=== PATIENT | female | born 1985 | race Caucasian/White ===

== ENCOUNTER 2017-06-14 16:21 | Inpatient (IN) | payer MEDICAID, OTHER ==
[~2017-06-14] VITALS: Ht 160 cm; Wt 72.0 kg
[2017-06-14] VITALS (74 sets, daily range): BP systolic 109–140; BP diastolic 72–117; PULSE 63–95; RESP 17–18; TEMP 98–98.3
[2017-06-14] MEDS ORDERED: PREN1TAB45 PO (16:43)
[2017-06-14] MEDS ORDERED: LACTATED RINGER'S 1000 ML INJ 1,000 ML IV PRN (17:02)
[2017-06-14] MEDS ORDERED: CITRIC ACID-SODIUM CITRATE LIQ 30 ML UDC PO SCH (17:15)
[2017-06-14] MEDS ORDERED: OXYTOCIN 30 UNITS-500ML PREMIX 500 ML IV PRN (17:15)
[2017-06-14] MEDS ORDERED: SODIUM CHLORID 0.9% 500 ML INJ 500 ML IV PRN (17:15)
[2017-06-14] MEDS ORDERED: LIDOCAINE HCL 1% 50 ML VIAL I-DERMAL PRN (17:15)
[2017-06-14] MEDS ORDERED: OXYTOCIN 30 UNITS-500ML PREMIX 500 ML IV ONE (17:15)
[2017-06-14] MEDS ORDERED: LIDOCAINE HCL 1% 50 ML VIAL INFIL PRN (17:15)
[2017-06-14] MEDS ORDERED: MINERAL OIL 10 ML VIAL TOPICAL PRN (17:15)
--- NOTE | 2017-06-14 17:16 | HHI.PR ---
MECHANIC'S ASSISTANT Note Note HPI HPI Chief Complaint ROM Date Seen: Jun 14, 2017 Time Seen: 17:08 Travel History International Travel<30 Days: Yes Contact w/Intl Traveler<30Days: Yes Name of Country Traveled to: [facility] Known Affected Area: Yes History of Present Illness HPI Pt is a 32y/o G1 @ 38.6wks. She has had a single [facility] visit to [facility] on 05/[facility] 2' to lack of insurance. She presents with ROM at 2:30pm (clear). Some back pain but no ctx or VB. +FM. Per records, GBS neg, BPD/HC <2 %, AC >97%, polyhydramnios, and abnormal R kidney. She is from [place] which has been affected by Zika. She is uncertain if she was bit or tested during this . Weeks Gestation: 38 Para: 0 : 1 History (Limited) History Past Medical History Medical History: Denies Significant Hx Past Surgical History Surgical History: No Previous Surgery Family History Family History: Negative Social History Alcohol Use: No Tobacco Use: No Substance Abuse: No Allergies-Medications Allergies-Medications (Allergen,Severity, Reaction): Coded Allergies: No Known Allergies (Unverified , 05/18/17) Home Meds Reported Medications Vit,Calc76/Iron/Folic (Pnv 29-1 Tablet) 29 Mg Iron-1 Mg Tablet, 1 TAB PO DAILY 06/14/17 ROS Review of Systems Except as stated in HPI: all other systems reviewed are Neg Physical Exam Physical Exam Narrative General: well developed, well nourished, no acute distress HEENT: normocephalic atraumatic, extraocular movements intact, neck supple Abdomen: soft, gravid, nontender, nondistended Uterus: fundus term Extremities: full range of motion Skin: normal coloration, no rashes, no suspicious skin lesions noted Neurologic: cranial nerves 2-12 grossly intact, normal muscle tone, normal gait Psychiatric: normal mood and affect, appropriate FHTs: 145, +accels, no decels, moderate variability, reactive [place]: irregular ctx Cvx: 3/100/-3 Data Data Data Vital Signs Reviewed: Yes Orders Orders Ob (2e) Additional Admit Info (06/14/17 17:02) Vital Signs (Adult) .ON ADMISSION (06/14/17 17:02) ^ Labor Status (06/14/17 17:02) ^ Non Stress Test (06/14/17 17:02) Admit To Inpatient (06/14/17 ) Vital Signs (Adult) .Per protocol (06/14/17 17:02) Heart (06/14/17 17:02) Amnioinfusion (06/14/17 17:02) Urinary Catheter Management .ONCE (06/14/17 17:02) Diet Liquid (06/14/17 Dinner) Lactated Ringer's 1000 Ml Inj (Lr 1000 M (06/14/17 17:02) Lactated Ringer's 1000 Ml Inj (Lr 1000 M (06/14/17 17:02) Sodium Chlorid 0.9% 500 Ml Inj (Ns 500 M (06/14/17 17:15) Sodium Chlor 0.9% 1000 Ml Inj (Ns 1000 M (06/14/17 17:22) Lidocaine 1% Inj (50 Ml) (Xylocaine 1% I (06/14/17 17:15) Citric Acid-Sodium Citrate Liq (Bicitra (06/14/17 17:15) Fentanyl Inj (Fentanyl Inj) (06/14/17 17:15) Fentanyl Inj (Fentanyl Inj) (06/14/17 17:15) Complete Blood Count With Diff (06/14/17 17:02) Hold Clot (06/14/17 17:02) Abo/Rh Blood Type (06/14/17 17:02) Urinalysis - C+S If Indicated (06/14/17 17:02) Drug Screen, Random Urine (06/14/17 17:02) Resp Oxygen Non Rebreathe Mask (06/14/17 ) ^ Epidural / Intrathecal Infus (06/14/17 17:02) Oxytocin 30 Units-500ml Premix (Pitocin (06/14/17 17:15) Lidocaine 1% Inj (50 Ml) (Xylocaine 1% I (06/14/17 17:15) Light Mineral Oil (Muri-Lube Oil) (06/14/17 17:15) Inpatient Certification (06/14/17 ) ^ Non Stress Test (06/14/17 17:02) Response To Medication .Post New Med Administration, Reaction (06/14/17 17:02) ^ Discontinue Medication (06/14/17 17:02) Oxytocin Drip (2-2-30) (06/14/17 17:15) Group B Strep: Negative MDM MDM Plan 32y/o G1 @ 38.6wks with PROM, limited PNC, BPD/HC <2%, AC>97%, renal abnormality. -- admit to L&D -- cat 1 FHTs -- pitocin augmentation -- jose notified -- GBS neg Diagnosis Diagnosis: Primary Impression: 38 weeks gestation of Additional Impressions: Limited care PROM (premature rupture of membranes) renal anomaly Hector Mary MD Jun 14, 2017 17:14 Hector Mary MD Jun 14, 2017 17:15
[2017-06-14] MEDS ORDERED: SODIUM CHLOR 0.9% 1000 ML INJ 1,000 ML IV PRN (17:22)
[2017-06-14] MEDS: LACTATED RINGER'S 1000 ML INJ 1,000 ML IV SCH (17:36)
[2017-06-14 17:47] LABS: AUTOMATED NEUTROPHIL # 7.7 TH/MM3 (1.8-7.7); BASOPHIL # 0.1 TH/MM3 (0-0.2); BASOPHIL % 0.7 % (0.0-2.0); EOSINOPHIL # 0.2 TH/MM3 (0-0.4); EOSINOPHIL % 1.4 % (0.0-4.0); HEMATOCRIT 36.7 % (35.0-46.0); HEMOGLOBIN 12.4 GM/DL (11.6-15.3); LYMPH % 21.8 % (9.0-44.0); LYMPHOCYTE # 2.4 TH/MM3 (1.0-4.8); MEAN CORPUSCULAR HEMOGLOBIN 30.9 PG (27.0-34.0); MEAN CORPUSCULAR HGB CONC 33.9 % (32.0-36.0); MEAN PLATELET VOLUME 9.2 FL (7.0-11.0); MONO % 7.3 % (0.0-8.0); MONOCYTE # 0.8 TH/MM3 (0-0.9); NEUT % 68.8 % (16.0-70.0); PLATELET COUNT 223 TH/MM3 (150-450); RED BLOOD COUNT 4.03 MIL/MM3 (4.00-5.30); RED CELL DISTRIBUTION WIDTH 14.1 % (11.6-17.2); WHITE BLOOD COUNT 11.1 TH/MM3 (4.0-11.0)
[2017-06-14 17:56] LABS: BACTERIA, URINE RARE /hpf; BILIRUBIN, URINE NEG (NEG); BLOOD, URINE TRACE (NEG); GLUCOSE,URINE NEG (NEG); KETONE, URINE NEG (NEG); MUCUS URINE FEW /lpf (OCC); NITRITE,URINE NEG (NEG); PH, URINE 6.5 (5.0-8.5); SQUAMOUS EPITHELIAL CELL URINE 2 /hpf (0-5); URINE COLOR YELLOW (YELLW/STRAW); URINE LEUKOCYTE ESTERASE NEG (NEG)
[2017-06-15] VITALS (80 sets, daily range): BP systolic 96–142; BP diastolic 49–89; PULSE 50–103; RESP 16–18; TEMP 97.5–98.2; O2SAT 97–98
[2017-06-15] MEDS ORDERED: fentaNYL 2MCG-BUPIV 0.125% INJ 100 ML ONE (07:23)
[2017-06-15] MEDS ORDERED: ePHEDrine/NS 25 MG/5 ML SYRINGE IV PUSH PRN (08:45)
[2017-06-15] MEDS: LACTATED RINGER'S 1000 ML INJ 1,000 ML IV SCH (08:57)
[2017-06-15] MEDS ORDERED: NO SYSTEM NARCOTICS PRN (09:00)
[2017-06-15] MEDS ORDERED: DO NOT ADMINISTER ANTICOAGULANTS PRN (09:00)
[2017-06-15] MEDS ORDERED: fentaNYL 2MCG-BUPIV 0.125% 100 ML EPIDURAL SCH (09:00)
--- NOTE | 2017-06-15 09:31 | PD.LABORPN ---
Subjective Subjective Resting in bed comfortably, states she cant feel any pain at this time. Resting comfortably. No complaints at this time. Objective Vital Signs Vital Signs Date Time Temp Pulse Resp B/P (MAP) Pulse Ox O2 Delivery O2 Flow Rate FiO2 06/15/17 09:00 61 109/69 (82) 06/15/17 08:25 67 06/15/17 08:25 66 108/71 (83) 06/15/17 08:20 65 06/15/17 08:20 69 112/67 (82) 06/15/17 08:15 81 06/15/17 08:15 69 118/79 (92) 06/15/17 08:10 80 06/15/17 08:10 79 111/75 (87) 06/15/17 08:05 70 106/65 (79) 06/15/17 08:05 68 06/15/17 08:00 75 107/65 (79) 06/15/17 08:00 73 06/15/17 07:56 71 06/15/17 07:55 98 06/15/17 07:51 89 142/89 (106) 06/15/17 07:50 88 06/15/17 07:45 89 06/15/17 07:20 72 116/82 (93) 06/15/17 07:20 98.0 16 06/15/17 07:01 73 106/56 (73) 06/15/17 06:32 74 105/67 (80) 06/15/17 06:30 62 96/49 (65) 06/15/17 06:01 93 101/75 (84) 06/15/17 05:31 62 118/68 (85) 06/15/17 05:12 97.5 18 06/15/17 05:00 65 128/86 (100) 06/15/17 04:31 65 116/85 (95) 06/15/17 04:30 75 06/15/17 04:25 75 06/15/17 04:20 72 06/15/17 04:15 76 06/15/17 04:10 65 06/15/17 04:05 68 06/15/17 04:00 71 120/79 (93) 06/15/17 04:00 72 06/15/17 03:40 67 06/15/17 03:35 79 06/15/17 03:30 70 109/72 (84) 06/15/17 03:30 73 06/15/17 03:10 74 06/15/17 03:05 66 06/15/17 03:01 74 112/72 (85) 06/15/17 03:00 69 06/15/17 02:30 68 101/56 (71) 06/15/17 02:30 66 06/15/17 02:10 70 06/15/17 02:05 71 06/15/17 02:01 65 107/61 (76) 06/15/17 02:00 66 06/15/17 01:40 66 06/15/17 01:35 70 06/15/17 01:30 64 122/77 (92) 06/15/17 01:30 62 Objective Pelvic Exam: Cervix: mid Dilatation: 3 Effacement: 50 Station: -3 Position: Vertex Membranes: ruptured Uterine Contractions: ~3minutes FHT's: Category: 1 Baseline: 135 Reactive: yes Variability: moderate Decels: none Weeks Gestation: 38 Assessment/Plan Assessment and Plan 32 year old at 39/0. Currently with consistent contraction, s/p clear ROM. GBS neg. -FHT category 1, reassuring -Monitor heart rate -Pitocin augmentation -Expectant delivery D/W Morales Mancuso MD R1 Jun 15, 2017 09:31
[2017-06-15] MEDS ORDERED: INFLUENZA VIRUS VACCINE (QUADRIVALENT) 0.5 ML SYR IM ONE (10:00)
[2017-06-15] MEDS ORDERED: LACTATED RINGER'S 1000 ML INJ 1,000 ML IV ONE ×2 (12:00→17:00)
[2017-06-15] MEDS ORDERED: OXYTOCIN 10 UNIT/ML AMP IV ONE (12:00)
[2017-06-15] MEDS ORDERED: LIDOCAINE 2%/EPINEPHrine PF 1:200,000 20ML SDV OTHER ONE (12:00)
[2017-06-15] MEDS ORDERED: ONDANSETRON HCL 4 MG/2 ML VIAL IV ONE (12:00)
[2017-06-15] MEDS ORDERED: DEXAMETHASONE SOD PHOS 4 MG/ML VIAL IV ONE (12:00)
[2017-06-15 13:20] LABS: HEPATITIS A AB IGM NEGATIVE (NEGATIVE); HEPATITIS B CORE AB IGM NEGATIVE (NEGATIVE); HEPATITIS B SURFACE ANTIGEN NEGATIVE (NEGATIVE); HEPATITIS C AB IgG NEGATIVE (NEGATIVE)
[2017-06-15] MEDS ORDERED: MORPHINE SULFATE PF 5 MG/10 ML VIAL ONE (16:23)
[2017-06-15] MEDS ORDERED: LACTATED RINGER'S 1000 ML INJ 1,000 ML IV SCH ×2 (17:30→23:34)
[2017-06-15] MEDS ORDERED: ceFAZolin 2 GM PREMIX 50 ML IV SCH (17:30)
[2017-06-15] MEDS ORDERED: CITRIC ACID-SODIUM CITRATE LIQ 30 ML UDC PO SCH (18:00)
[2017-06-15] MEDS ORDERED: OXYTOCIN 30 UNITS-500ML PREMIX 500 ML IV ONE (18:45)
[2017-06-15] MEDS ORDERED: SIMETHICONE 80 MG CHEWABLE TAB PO PRN (18:45)
[2017-06-15] MEDS ORDERED: SODIUM CHLORIDE 0.9% FLUSH 10 ML FLUSH IV FLUSH PRN (18:45)
[2017-06-15] MEDS ORDERED: ZOLPIDEM TARTRATE 5 MG TAB PO PRN (18:45)
[2017-06-15] MEDS ORDERED: ONDANSETRON HCL 4 MG/2 ML VIAL IV PUSH PRN (18:45)
[2017-06-15] MEDS ORDERED: ACETAMINOPHEN 325 MG TAB PO PRN (18:45)
[2017-06-15] MEDS ORDERED: EPIDURAL-DIPHENHYDRAMINE HCL 50 MG CAP PO PRN (20:30)
[2017-06-15] MEDS ORDERED: EPIDURAL-NO SYSTEMIC NARCOTICS PRN (20:30)
[2017-06-15] MEDS ORDERED: EPIDURAL-DO NOT ADMINISTER ANTICOAGULANTS PRN (20:30)
[2017-06-15] MEDS ORDERED: EPIDURAL-DIPHENHYDRAMINE HCL 50 MG/ML VIAL IV PUSH PRN (20:30)
[2017-06-15] MEDS ORDERED: EPIDURAL-NALOXONE HCL 0.4 MG/ML AMP IV PUSH PRN (20:30)
[2017-06-16] VITALS (7 sets, daily range): BP systolic 101–127; BP diastolic 64–73; PULSE 63–102; RESP 16–18; TEMP 97.6–98; O2SAT 95–98
[2017-06-16] MEDS ORDERED: OXYTOCIN 30 UNITS-500ML PREMIX 500 ML IV PRN (04:45)
--- NOTE | 2017-06-16 07:24 | HHI.OB ---
Subjective Post Operative Day: 1 Remarks Postoperative day # 1 AFVSS overnight. Incision not draining. Decreased lochia. Denies dysuria. No breast tenderness. She is feeding the baby via breast. Appetite good. No nausea or vomiting. Positive flatus. Ambulating well. Denies calf pain or shortness of breath. Otherwise, she is doing well this morning and has no other complaints. Objective Vitals/I&O Vital Signs Date Time Temp Pulse Resp B/P (MAP) Pulse Ox O2 Delivery O2 Flow Rate FiO2 06/16/17 04:00 127/73 (91) 06/16/17 04:00 98.0 72 18 98 06/16/17 01:40 18 06/16/17 00:00 97.9 16 97 06/16/17 00:00 63 06/16/17 00:00 121/73 (89) 06/15/17 23:00 18 06/15/17 22:00 18 06/15/17 21:00 18 06/15/17 20:20 97.9 103 18 130/82 (98) 98 06/15/17 20:01 97.6 06/15/17 19:30 71 17 98 06/15/17 19:30 107/62 (77) 06/15/17 19:15 68 17 125/70 (88) 97 06/15/17 18:57 69 16 98 06/15/17 18:57 115/68 (84) 06/15/17 18:42 69 06/15/17 18:42 97.5 18 110/65 (80) 98 06/15/17 16:00 56 107/68 (81) 06/15/17 15:45 18 06/15/17 15:30 57 108/67 (81) 06/15/17 15:00 57 132/78 (96) 06/15/17 14:01 56 108/87 (94) 06/15/17 13:45 97.9 18 06/15/17 13:30 50 114/69 (84) 06/15/17 13:01 55 124/71 (88) 06/15/17 12:31 64 136/59 (84) 06/15/17 11:36 98.0 16 06/15/17 11:30 55 121/76 (91) 06/15/17 11:00 55 116/77 (90) 06/15/17 10:31 103 106/56 (73) 06/15/17 10:01 61 111/54 (73) 06/15/17 09:31 58 107/59 (75) 06/15/17 09:27 97.6 06/15/17 09:00 61 109/69 (82) 06/15/17 08:25 67 06/15/17 08:25 66 108/71 (83) 06/15/17 08:20 65 06/15/17 08:20 69 112/67 (82) 06/15/17 08:15 81 06/15/17 08:15 69 118/79 (92) 06/15/17 08:10 80 06/15/17 08:10 79 111/75 (87) 06/15/17 08:05 70 106/65 (79) 06/15/17 08:05 68 06/15/17 08:00 75 107/65 (79) 06/15/17 08:00 73 06/15/17 07:56 71 06/15/17 07:55 98 06/15/17 07:51 89 142/89 (106) 06/15/17 07:50 88 06/15/17 07:45 89 Result Diagram: 06/14/17 1514 Objective Remarks GENERAL: Well-nourished, well-developed patient. CARDIOVASCULAR: Regular rate and rhythm without murmurs, gallops, or rubs. RESPIRATORY: Breath sounds equal bilaterally. No accessory muscle use. ABDOMEN/GI: Abdomen soft, non-tender, bowel sounds present. Incision: Clean, dry and intact. Fundus: Firm, non-tender at umbilicus. GENITOURINARY: Light to moderate bleeding. EXTREMITIES: No cyanosis or edema, non-tender, without signs of DVT. Medications and IVs Current Medications Medications (Trade) Dose Ordered Sig/Naren Route Start Time Stop Time Status Last Admin Lactated Ringer's 1,000 ml @ 100 mls/hr Q10H IV 06/15/17 23:34 06/16/17 19:33 Oxytocin 500 ml @ 100 mls/hr UNSCH X1 PRN IV 06/16/17 04:45 06/17/17 04:44 (NS Flush) 2 ml BID IV FLUSH 06/15/17 21:00 (NS Flush) 2 ml UNSCH PRN IV FLUSH 06/15/17 18:45 (Mylicon Chew) 80 mg QID PRN PO 06/15/17 18:45 (Tylenol) 650 mg Q6H PRN PO 06/15/17 18:45 (Motrin) 600 mg Q6H PRN PO 06/15/17 18:45 (Percocet 5-325 Mg) 1 tab Q4H PRN PO 06/15/17 18:45 (Percocet 5-325 Mg) 2 tab Q4H PRN PO 06/15/17 18:45 Cefazolin Sodium 1000 mg/Sodium Chloride 100 ml @ 200 mls/hr Q8H IV 06/16/17 01:00 06/16/17 09:29 06/16/17 01:49 (Shweta-Colace) 2 tab Q12H PRN PO 06/15/17 18:45 (Ambien) 5 mg HS PRN PO 06/15/17 18:45 (M-M-R Ii Inj) 0.5 ml ONCE ONCE SQ 06/16/17 16:00 06/16/17 16:01 (Boostrix Inj) 0.5 ml ONCE ONCE IM 06/16/17 16:00 06/16/17 16:01 06/16/17 05:13 (Zofran Inj) 4 mg Q6H PRN IV PUSH 06/15/17 18:45 Miscellaneous Information NO SYSTEMIC NARCOTICS TO BE GIVEN FO... UNSCH PRN .XX 06/15/17 20:30 06/16/17 20:29 (Narcan Inj) 0.4 mg UNSCH PRN IV PUSH 06/15/17 20:30 06/16/17 20:29 (Benadryl Inj) 25 mg Q6H PRN IV PUSH 06/15/17 20:30 06/16/17 20:29 (Benadryl) 50 mg Q6H PRN PO 06/15/17 20:30 06/16/17 20:29 Miscellaneous Information ALL NURSING DEPARTMENTS UNSCH PRN .XX 06/15/17 20:30 06/16/17 20:29 Assessment/Plan Assessment and Plan 32 y/o female who is POD# 1 s/p CXN. -Continue routine care. -Percocet and Motrin PRN pain. -Encouraged OOB. Advised pelvic rest for 6 wks. Will need a f/u appt. in 1 wk for incision check. -Re: ctrl, she states she has not used control in the past and does not wish to use it now. -D/c in 1-2 more days. misbah Bae,Morales Lei MD R1 Jun 16, 2017 07:24
[2017-06-16 10:43] LABS: AUTOMATED NEUTROPHIL # 11.4 TH/MM3 (1.8-7.7); BASOPHIL % 0.2 % (0.0-2.0); EOSINOPHIL % 0.1 % (0.0-4.0); HEMATOCRIT 27.5 % (35.0-46.0); HEMOGLOBIN 9.7 GM/DL (11.6-15.3); LYMPH % 16.1 % (9.0-44.0); LYMPHOCYTE # 2.3 TH/MM3 (1.0-4.8); MEAN CELL VOLUME 90.5 FL (80.0-100.0); MEAN CORPUSCULAR HEMOGLOBIN 31.8 PG (27.0-34.0); MEAN CORPUSCULAR HGB CONC 35.1 % (32.0-36.0); MEAN PLATELET VOLUME 8.9 FL (7.0-11.0); MONO % 3.1 % (0.0-8.0); MONOCYTE # 0.4 TH/MM3 (0-0.9); NEUT % 80.5 % (16.0-70.0); PLATELET COUNT 178 TH/MM3 (150-450); RED BLOOD COUNT 3.04 MIL/MM3 (4.00-5.30); RED CELL DISTRIBUTION WIDTH 14.3 % (11.6-17.2); WHITE BLOOD COUNT 14.2 TH/MM3 (4.0-11.0)
[2017-06-16] MEDS: oxyCODONE/ACETAMINOPHEN 5 MG/325 MG TAB PO PRN ×2 (11:55→20:32)
[2017-06-16] MEDS: DOCUSATE SODIUM 50 MG/SENNA 8.6 MG TAB PO PRN (11:55)
[2017-06-16] MEDS: IBUPROFEN 600 MG TAB PO PRN ×2 (11:55→20:32)
[2017-06-16] MEDS ORDERED: DIPHTH/TETANUS/ACEL PERTUSSIS (BOOSTER) 0.5 ML VIAL/PFS IM ONE (16:00)
[2017-06-16] MEDS ORDERED: MEASLES, MUMPS, RUBELLA VACCINE 0.5 ML VIAL SQ ONE (16:00)
--- NOTE | 2017-06-16 17:24 | MP ---
cc: MARYJO BRICE MD DATE OF SURGERY: 06/15/2017 PREOPERATIVE DIAGNOSIS: 39-week intrauterine with failed trial of labor, failure to progress. Infant with microcephaly, renal malformation, polyhydramnios, known prior to labor. POSTOPERATIVE DIAGNOSIS: 39-week intrauterine with failed trial of labor, failure to progress. with microcephaly, renal malformation, polyhydramnios, known prior to labor. Right dermoid cyst, ovary. PROCEDURE PERFORMED: Primary low transverse section, right ovarian cystectomy. SURGEON George Brice MD. MATHEMATICAL SCIENTIST: Cierra. ANESTHESIA: Epidural. PREOP NOTE: The patient is a 32-year-old at 39 weeks with spontaneous rupture of membranes, was admitted for labor augmentation induction due to premature rupture. She has a fetus with microcephaly, right renal malformation, polyhydramnios, felt to be possibly ZIKA related. She was induced with Pitocin, cervical dilation of 4-5 cm. No further cervical change. She had failure to progress, failed induction and was taken for section. PROCEDURE The patient was taken to the operating room, placed in supine position on the operating room table. After adequate epidural anesthesia, she was prepped and draped for abdominal surgery. A Pfannenstiel incision was made in lower abdomen carried to the fascia. The fascia dissected off the rectus muscle and the rectus split in the midline. The cavity entered sharply. The incision was extended superiorly and inferiorly. The bladder blade placed in the lower uterine incision. The vesicouterine peritoneum was then reflected off the lower uterine segment, placed on the bladder blade. A transverse hysterotomy was made and extended bluntly bilaterally. A male infant was delivered at 17:34, weight 3060 grams. Apgars 7 and 9. Cord pH 7.27. Delayed cord clamping was now done. Cord gas done, as mentioned above. Cord blood obtained. Placenta manually extracted and sent to pathology. The uterus exteriorized. Hysterotomy closed in a running layer of 0 chromic followed by imbricating suture of same. Hemostasis was achieved. The bladder reapproximated with running stitch of 2-0 Vicryl. On examining the ovaries, there is a 5 cm cystic structure on the right ovary. That cystic area was initially just going to be drained. When a hole was made in the cyst pea-green liquid came out along with hair, and so it was a dermoid cyst. At that point we tried to stop the flow out of the ovarian cyst and then shelled out the cyst by taking a notch and making an incision around the capsule of the cyst at the edge where normal ovarian tissue appeared to end and the cyst began, and that was then grasped with Allis clamps and Metzenbaum scissors used to undermine around that cystic area and freeing it up mobilized that cyst out away from the ovarian capsule and then it was clamped, cut and handed off the surface. Opened on the side tray, a classic dermoid cyst features with the greenish liquid, a lot of hair and a tooth at the base. This was sent to pathology. The right ovary was then oversewn at the base. The ovarian surface capsule was then closed in a running layer of 2-0 Vicryl, and another 2-0 Vicryl stitch was placed in the middle of the ovarian parenchyma to close the space. This closed the ovary well enough then at that point could be wrapped in Interceed for adhesive prevention and then the other ovary was examined and found to be totally normal. Both tubes were normal. The uterus was replaced in the peritoneal cavity and the cul-de-sac was irrigated and suctioned well. The parietal peritoneum closed in running layer of 2-0 Vicryl. The rectus muscles reapproximated with stick ties of chromic and Vicryl. The fascia closed in running 0 Vicryl and skin closed with 3-0 Monocryl subcuticular stitch. A piriform dressing was placed on the incision. ESTIMATED BLOOD LOSS: 500 cc. COMPLICATIONS: None. Sponge and needle counts correct x2. The patient was taken to recovery in stable condition. MD TIGIST Gonzalez/BRENNA /7:04 PM /2:49 PM
[2017-06-17] MEDS: oxyCODONE/ACETAMINOPHEN 5 MG/325 MG TAB PO PRN ×3 (02:08→20:44)
[2017-06-17 08:00] VITALS: BP 127/74; PULSE 75; RESP 16; TEMP 98.2
--- NOTE | 2017-06-17 08:04 | HHI.OB ---
Subjective Post Operative Day: 2 Remarks Postoperative day # 2 AFVSS overnight. Incision not draining. Decreased lochia. Denies dysuria. No breast tenderness. She is feeding the baby via breast. Appetite good. No nausea or vomiting. Positive flatus. Ambulating well. Denies calf pain or shortness of breath. Otherwise, she is doing well this morning and has no other complaints. Objective Vitals/I&O Vital Signs Date Time Temp Pulse Resp B/P (MAP) Pulse Ox O2 Delivery O2 Flow Rate FiO2 06/16/17 20:00 64 18 101/64 (76) 06/16/17 20:00 98.0 97 06/16/17 15:45 97.6 81 16 107/73 (84) 95 06/16/17 12:00 97.9 102 18 109/69 (82) 96 Result Diagram: 06/16/17 1016 Objective Remarks GENERAL: Well-nourished, well-developed patient. CARDIOVASCULAR: Regular rate and rhythm without murmurs, gallops, or rubs. RESPIRATORY: Breath sounds equal bilaterally. No accessory muscle use. ABDOMEN/GI: Abdomen soft, non-tender, bowel sounds present. Incision: Clean, dry and intact. Fundus: Firm, non-tender at umbilicus. GENITOURINARY: Light to moderate bleeding. EXTREMITIES: No cyanosis or edema, non-tender, without signs of DVT. Medications and IVs Current Medications Medications (Trade) Dose Ordered Sig/Naren Route Start Time Stop Time Status Last Admin (NS Flush) 2 ml BID IV FLUSH 06/15/17 21:00 (NS Flush) 2 ml UNSCH PRN IV FLUSH 06/15/17 18:45 (Mylicon Chew) 80 mg QID PRN PO 06/15/17 18:45 (Tylenol) 650 mg Q6H PRN PO 06/15/17 18:45 (Motrin) 600 mg Q6H PRN PO 06/15/17 18:45 06/16/17 20:32 (Percocet 5-325 Mg) 1 tab Q4H PRN PO 06/15/17 18:45 06/17/17 02:08 (Percocet 5-325 Mg) 2 tab Q4H PRN PO 06/15/17 18:45 (Shweta-Colace) 2 tab Q12H PRN PO 06/15/17 18:45 06/16/17 11:55 (Ambien) 5 mg HS PRN PO 06/15/17 18:45 (Zofran Inj) 4 mg Q6H PRN IV PUSH 06/15/17 18:45 Assessment/Plan Assessment and Plan 32 y/o female who is POD# 2 s/p CXN. -Continue routine care. -Percocet and Motrin PRN pain. -Encouraged OOB. Advised pelvic rest for 6 wks. Will need a f/u appt. in 1 wk for incision check. -Re: ctrl, she states she has not used control in the past and does not wish to use it now. -Likely discharge today. Morales Wagoner dr., MD R1 Jun 17, 2017 08:04
[2017-06-17] MEDS: IBUPROFEN 600 MG TAB PO PRN ×2 (13:51→20:44)
[2017-06-17] MEDS: SODIUM CHLORIDE 0.9% FLUSH 10 ML FLUSH IV FLUSH SCH (19:26)
[2017-06-17] MEDS: DOCUSATE SODIUM 50 MG/SENNA 8.6 MG TAB PO PRN (20:44)
[2017-06-17 21:00] VITALS: BP 121/77; PULSE 92; RESP 18; TEMP 98.1; O2SAT 94
[2017-06-18] MEDS: oxyCODONE/ACETAMINOPHEN 5 MG/325 MG TAB PO PRN ×2 (03:59→14:16)
[2017-06-18] MEDS: IBUPROFEN 600 MG TAB PO PRN ×2 (03:59→14:16)
--- NOTE | 2017-06-18 07:57 | HHI.OB ---
Subjective Remarks Postoperative day # 3 AFVSS overnight. Incision not draining. Decreased lochia. Denies dysuria. No breast tenderness. She is feeding the baby via breast. Appetite good. No nausea or vomiting. Positive flatus. Ambulating well. Denies calf pain or shortness of breath. Otherwise, she is doing well this morning and has no other complaints. Patient is feeling less stressed today and is more prepared to go home. Communicated with patient using [employer] translation services: Lynette [id number] Objective Vitals/I&O Vital Signs Date Time Temp Pulse Resp B/P (MAP) Pulse Ox O2 Delivery O2 Flow Rate FiO2 06/17/17 21:00 98.1 92 18 121/77 (92) 94 06/17/17 08:00 75 16 127/74 (91) 06/17/17 08:00 98.2 Result Diagram: 06/16/17 1016 Objective Remarks GENERAL: Well-nourished, well-developed patient. CARDIOVASCULAR: Regular rate and rhythm without murmurs, gallops, or rubs. RESPIRATORY: Breath sounds equal bilaterally. No accessory muscle use. ABDOMEN/GI: Abdomen soft, non-tender, bowel sounds present. Incision: Clean, dry and intact. Fundus: Firm, non-tender at umbilicus. GENITOURINARY: Light to moderate bleeding. EXTREMITIES: No cyanosis or edema, non-tender, without signs of DVT. Medications and IVs Current Medications Medications (Trade) Dose Ordered Sig/Naren Route Start Time Stop Time Status Last Admin (NS Flush) 2 ml BID IV FLUSH 06/15/17 21:00 (NS Flush) 2 ml UNSCH PRN IV FLUSH 06/15/17 18:45 (Mylicon Chew) 80 mg QID PRN PO 06/15/17 18:45 (Tylenol) 650 mg Q6H PRN PO 06/15/17 18:45 (Motrin) 600 mg Q6H PRN PO 06/15/17 18:45 06/18/17 03:59 (Percocet 5-325 Mg) 1 tab Q4H PRN PO 06/15/17 18:45 06/17/17 13:51 (Percocet 5-325 Mg) 2 tab Q4H PRN PO 06/15/17 18:45 06/18/17 03:59 (Shweta-Colace) 2 tab Q12H PRN PO 06/15/17 18:45 06/17/17 20:44 (Ambien) 5 mg HS PRN PO 06/15/17 18:45 (Zofran Inj) 4 mg Q6H PRN IV PUSH 06/15/17 18:45 Assessment/Plan Assessment and Plan 32 y/o female who is POD# 3 s/p CXN. -Continue routine care. -Percocet and Motrin PRN pain. -Encouraged OOB. Advised pelvic rest for 6 wks. Will need a f/u appt. in 1 wk for incision check. -Re: ctrl, she states she has not used control in the past and does not wish to use it now. -Likely discharge today. Morales Carbajal dr., MD R1 Jun 18, 2017 07:57
[2017-06-18 08:00] VITALS: BP 116/69; PULSE 77; RESP 16; TEMP 98.4
[2017-06-18] MEDS ORDERED: PERI PO (08:02)
[2017-06-18] MEDS ORDERED: OXYC1TAB63 PO (08:02)
[2017-06-18] MEDS ORDERED: IBUP-232 PO (08:02)
--- NOTE | 2017-06-18 08:03 | HHI.DCPOC ---
Discharge Care Plan Diagnosis: (1) Single delivery by Report Symptoms to Your Doctor -Temperature above 100.5 degrees -Redness, of incision or excessive or foul smelling drainage -Unusual pain or calf pain -Increased vaginal bleeding -Painful or difficulty urinating -Feelings of extreme sadness or anxiety after 2 weeks Goals to Promote Your Health * To prevent worsening of your condition and complications * To maintain your health at the optimal level Directions to Meet Your Goals Take your medications as prescribed Follow your dietary instruction Follow activity as directed Ensure plenty of rest for recovery Drink fluids for hydration Keep your appointments as scheduled Take your immunizations and boosters as scheduled If your symptoms worsen call your PCP, if no PCP go to Urgent Care Center or Emergency Room Smoking is Dangerous to Your Health. Avoid second hand smoke Call the 24-hour crisis hotline for domestic abuse at Librado Hurtado MD R2 Jun 18, 2017 08:02
[2017-06-18] MEDS: SODIUM CHLORIDE 0.9% FLUSH 10 ML FLUSH IV FLUSH SCH (09:00)
[2017-06-18] MEDS: DOCUSATE SODIUM 50 MG/SENNA 8.6 MG TAB PO PRN (14:36)
== END 2017-06-18 15:31 | disposition home or self-care (01) | DRG 765 ==
LOC: HOBED 16:21 → H2EB 17:05 → H2EA 17:07 → H2EB 17:21 → H1EA 06-15 20:07
PROVIDERS: ADMIT Obstetrics & Gynecology; ATTEND Obstetrics & Gynecology
PROC: 10D00Z1 Extraction of Products of Conception, Low, Open Approach (ICD-10-PCS; principal; 2017-06-15)
PROC: 0UB00ZZ Excision of Right Ovary, Open Approach (ICD-10-PCS; 2017-06-15)
DX: O42.92 Full-term premature rupture of membranes, unspecified as to length of time between rupture and onset of labor (principal); O40.3XX0 Polyhydramnios, third trimester, not applicable or unspecified; O35.8XX0 Maternal care for other (suspected) fetal abnormality and damage, not applicable or unspecified; O66.40 Failed trial of labor, unspecified; O62.2 Other uterine inertia; O34.83 Maternal care for other abnormalities of pelvic organs, third trimester; D27.0 Benign neoplasm of right ovary; Z3A.38 38 weeks gestation of pregnancy; Z3A.39 39 weeks gestation of pregnancy; Z37.0 Single live birth
CPT/HCPCS: 59025; 80074; 80307; 81001; 82805; 85025; 86592; 86703; 86762; 86850; 86900; 86901; 88304; 88307; 90715; C1765; J0690; J1100; J2274; J2405; J2590; J7120